=== PATIENT | female | born 1940 | race Hispanic/Latino ===

== ENCOUNTER → 2018-06-03 | Outpatient (CLI) | payer OTHER, MEDICARE | END | disposition home or self-care (01) | LOC: LAB 09:49 | PROVIDERS: ATTEND Dentist Oral and Maxillofacial Surgery | DX: M87.180 Osteonecrosis due to drugs, jaw (principal); Z79.83 Long term (current) use of bisphosphonates | CPT/HCPCS: 36415 ==

== ENCOUNTER → 2020-11-04 | Outpatient (CLI) | payer OTHER, MEDICARE ==
[2020-11-04 14:28] LABS: CREATININE 0.8 mg/dL (0.5-1.5)
== END | disposition home or self-care (01) ==
LOC: LAB 13:25
PROVIDERS: ATTEND Internal Medicine Gastroenterology
DX: R63.4 Abnormal weight loss (principal); R10.31 Right lower quadrant pain
CPT/HCPCS: 36415; 82565; 84520

== ENCOUNTER → 2020-11-05 | Outpatient (CLI) | payer OTHER, MEDICARE ==
[~2020-11-05] MED LIST: IOHEXOL-350 50ML VIAL IV ONE
== END | disposition home or self-care (01) ==
LOC: RAH 10:00
PROVIDERS: ATTEND Internal Medicine Gastroenterology
DX: K57.30 Diverticulosis of large intestine without perforation or abscess without bleeding (principal); R16.1 Splenomegaly, not elsewhere classified; R63.4 Abnormal weight loss
CPT/HCPCS: 74178; Q9967

== ENCOUNTER → 2020-11-25 | Outpatient (CLI) | payer OTHER, MEDICARE | END | disposition home or self-care (01) | LOC: RAH 09:53 | PROVIDERS: ATTEND Internal Medicine Gastroenterology | DX: R93.3 Abnormal findings on diagnostic imaging of other parts of digestive tract (principal); R16.1 Splenomegaly, not elsewhere classified | CPT/HCPCS: 76700; 93975 ==

== ENCOUNTER 2021-02-28 09:42 | Emergency (ER) | payer OTHER, MEDICARE ==
[~2021-02-28] VITALS: Ht 152.4 cm; Wt 58.5 kg
[2021-02-28 09:54] VITALS: BP 175/73
[2021-02-28] MEDS ORDERED: KETOROLAC 15MG/ML VIAL (15MG/ML) ONE (10:15)
[2021-02-28] MEDS ORDERED: KETOROLAC 15MG/ML VIAL (15MG/ML) IV ONE (10:30)
[2021-02-28 12:26] VITALS: BP 146/67
[2021-02-28] MEDS ORDERED: ACET1TAB25 PO (13:10)
[2021-02-28 13:36] VITALS: BP 151/65
== END 2021-02-28 13:40 | disposition home or self-care (01) ==
LOC: EDH 09:42
DX: S22.068A Other fracture of T7-T8 thoracic vertebra, initial encounter for closed fracture (principal); I10 Essential (primary) hypertension; E11.9 Type 2 diabetes mellitus without complications; E78.00 Pure hypercholesterolemia, unspecified; W01.0XXA Fall on same level from slipping, tripping and stumbling without subsequent striking against object, initial encounter; Y93.89 Activity, other specified; Y92.89 Other specified places as the place of occurrence of the external cause; Y99.8 Other external cause status
CPT/HCPCS: 71045; 71250; 72070; 74176; 93005; 96374; 99285; J1885

== ENCOUNTER 2022-03-11 11:02 | Emergency (ER) | payer OTHER, MEDICARE ==
[~2022-03-11] VITALS: Ht 152.4 cm; Wt 59.0 kg
[~2022-03-11 11:02] MED LIST changes: +ACET-2079 PO; -IOHEXOL-350 50ML VIAL IV ONE
[2022-03-11 11:05] VITALS: BP 158/70
[2022-03-11] MEDS ORDERED: DIPH25 PO (11:51)
[2022-03-11] MEDS ORDERED: FAMOTIDINE 20MG TAB PO ONE (12:00)
[2022-03-11] MEDS ORDERED: DIPHENHYDRAMINE HCL 25 MG CAPSULE PO ONE (12:00)
[2022-03-11 12:07] LABS: APPEARANCE,URINE CLEAR (CLEAR); BILIRUBIN,URINE NEGATIVE (NEGATIVE); COLOR,URINE YELLOW (YELLOW); GLUCOSE, URINE (UA) NEGATIVE (NEGATIVE); KETONES,URINE NEGATIVE (NEGATIVE); LEUKOCYTE ESTERASE ,URINE NEGATIVE (NEGATIVE); NITRATE,URINE NEGATIVE (NEGATIVE); OCCULT BLOOD,URINE NEGATIVE (NEGATIVE); PROTEIN,URINE NEGATIVE (NEGATIVE)
== END 2022-03-11 12:36 | disposition home or self-care (01) ==
LOC: EDH 11:02
DX: T78.49XA Other allergy, initial encounter (principal); E78.00 Pure hypercholesterolemia, unspecified; K21.9 Gastro-esophageal reflux disease without esophagitis; X58.XXXA Exposure to other specified factors, initial encounter
CPT/HCPCS: 99283; 81003; Q0163

== ENCOUNTER → 2022-06-10 | Outpatient (CLI) | payer OTHER, MEDICARE ==
[~2022-06-10] MED LIST changes: +DIPH25 PO
== END | disposition home or self-care (01) ==
LOC: RAH 08:52
PROVIDERS: ATTEND Internal Medicine Gastroenterology
DX: K74.60 Unspecified cirrhosis of liver (principal)
CPT/HCPCS: 76700

== ENCOUNTER → 2022-11-23 | Outpatient (CLI) | payer OTHER, MEDICARE ==
[~2022-11-23] MED LIST changes: +DIPH-1242 PO; -DIPH25 PO
== END | disposition home or self-care (01) ==
LOC: RAH 08:16
PROVIDERS: ATTEND Internal Medicine Gastroenterology
DX: K74.60 Unspecified cirrhosis of liver (principal); Q89.09 Congenital malformations of spleen; I70.0 Atherosclerosis of aorta
CPT/HCPCS: 76700

== ENCOUNTER 2023-02-08 17:49 | Emergency (ER) | payer OTHER, MEDICARE ==
[~2023-02-08] VITALS: Ht 152.4 cm; Wt 56.2 kg
[2023-02-08 17:50] VITALS: BP 135/66
[2023-02-08 19:26] LABS: BASOPHILS % (AUTO) 0.7 % (0.0-5.0); EOSINOPHILS % (AUTO) 4.7 % (0.0-8.0); HEMATOCRIT 26.5 % (36-48); LYMPHOCYTES % (AUTO) 24.3 % (21.0-51.0); MEAN CORPUSCULAR HEMOGLOBIN 29.6 pg (27.0-33.0); MEAN CORPUSCULAR HGB CONC 32.8 g/dL (32.0-36.0); MEAN CORPUSCULAR VOLUME 90.1 fL (79-99); MONOCYTES % (AUTO) 8.7 % (3.0-13.0); NEUTROPHILS % (AUTO) 61.3 % (40.0-77.0); PLATELET COUNT (AUTO) 92 K/uL (130-400); RED BLOOD CELL COUNT(AUTO) 2.94 MIL/uL (4.00-5.50); RED CELL DISTRIBUTION WIDTH 14.6 % (11.0-15.5)
[2023-02-08 19:34] LABS: POTASSIUM 3.6 mmol/L (3.5-5.1)
[2023-02-08 19:39] LABS: ALBUMIN 2.8 g/dL (3.5-5.0); TOTAL PROTEIN, SERUM 6.1 g/dL (6.0-8.3)
[2023-02-08 19:57] LABS: EOSINOPHILS % (MANUAL) 3 % (1-6); LYMPHOCYTES % (MANUAL) 22 % (22-44); MAN.DIFF COMMENT-IMPRESSION MANUAL DIFFERENTIAL; MONOCYTES % (MANUAL) 11 % (2-9); SEGMENTED NEUTROPHILS % 64 % (40-70)
[2023-02-08 19:59] LABS: PLATELET MORPHOLOGY COMMENT DECREASED
[2023-02-08] MEDS ORDERED: CYCL5TAB PO (22:26)
== END 2023-02-08 23:33 | disposition home or self-care (01) ==
LOC: EDH 17:49
DX: R25.2 Cramp and spasm (principal); K74.60 Unspecified cirrhosis of liver; D61.818 Other pancytopenia; E11.9 Type 2 diabetes mellitus without complications; E78.00 Pure hypercholesterolemia, unspecified; I10 Essential (primary) hypertension
CPT/HCPCS: 36415; 73562; 80053; 85025; 93970

== ENCOUNTER 2023-07-01 12:49 | Emergency (ER) | payer OTHER, MEDICARE ==
[~2023-07-01] VITALS: Ht 162.6 cm; Wt 68.0 kg
[~2023-07-01 12:49] MED LIST changes: +CYCL5TAB PO
[2023-07-01 14:41] LABS: BASOPHILS # (AUTO) 0.02 K/uL (0.00-0.20); BASOPHILS % (AUTO) 0.7 % (0.0-5.0); EOSINOPHILS # (AUTO) 0.18 K/uL (0.00-0.70); EOSINOPHILS % (AUTO) 6.3 % (0.0-8.0); HEMATOCRIT 28.3 % (36-48); LYMPHOCYTES # (AUTO) 0.6 K/uL (1.0-4.8); LYMPHOCYTES % (AUTO) 19.8 % (21.0-51.0); MEAN CORPUSCULAR HEMOGLOBIN 29.9 pg (27.0-33.0); MEAN CORPUSCULAR HGB CONC 32.2 g/dL (32.0-36.0); MEAN CORPUSCULAR VOLUME 93.1 fL (79-99); MONOCYTES # (AUTO) 0.2 K/uL (0.1-1.0); NEUTROPHILS # (AUTO) 1.9 K/uL (1.8-7.7); NEUTROPHILS % (AUTO) 65.2 % (40.0-77.0); PLATELET COUNT (AUTO) 120 K/uL (130-400); RED BLOOD CELL COUNT(AUTO) 3.04 MIL/uL (4.00-5.50); RED CELL DISTRIBUTION WIDTH 14.1 % (11.0-15.5); WHITE BLOOD COUNT (AUTO) 2.9 K/uL (4.8-10.8)
[2023-07-01 14:44] LABS: CREATININE 0.8 mg/dL (0.5-1.5); POTASSIUM 3.5 mmol/L (3.5-5.1)
[2023-07-01 14:56] LABS: ALBUMIN 3.1 g/dL (3.5-5.0); BILIRUBIN,TOTAL 0.7 mg/dL (0.2-1.0); TOTAL PROTEIN, SERUM 7.4 g/dL (6.0-8.3)
[2023-07-01 15:20] LABS: BAND NEUTROPHILS % (MANUAL) 4 % (0-2); EOSINOPHILS % (MANUAL) 4 % (1-6); LYMPHOCYTES % (MANUAL) 14 % (22-44); MAN.DIFF COMMENT-IMPRESSION MANUAL DIFFERENTIAL; MONOCYTES % (MANUAL) 6 % (2-9); REACTIVE LYMPHOCYTES 3 % (0-0); SEGMENTED NEUTROPHILS % 69 % (40-70); TOTAL CELLS COUNTED 100
[2023-07-01] MEDS ORDERED: MECLIZINE HCL 12.5 MG TABLET PO ONE (16:30)
[2023-07-01] MEDS ORDERED: MECL-262 PO (17:25)
[2023-07-01 17:27] VITALS: BP 145/68; PULSE 90; RESP 18; O2SAT 97
== END 2023-07-01 17:36 | disposition home or self-care (01) ==
LOC: EDH 12:49
DX: R42 Dizziness and giddiness (principal); E11.9 Type 2 diabetes mellitus without complications; E78.00 Pure hypercholesterolemia, unspecified; I10 Essential (primary) hypertension; K21.9 Gastro-esophageal reflux disease without esophagitis
CPT/HCPCS: 36415; 70450; 80053; 84484; 85025; 93005

== ENCOUNTER 2025-07-30 17:56 | Emergency (ER) | payer OTHER, MEDICAID ==
[~2025-07-30] VITALS: Ht 152.4 cm; Wt 56.7 kg
[2025-07-30 18:24] LABS: IMMATURE GRANULOCYTE ABSOLUTE 0.02 K/uL (0-1); NUCLEATED RED BLOOD CELLS 0.0 % (0.0-0.19); PLATELET COUNT (AUTO) 58 K/uL (130-400); RED BLOOD CELL COUNT(AUTO) 3.03 MIL/uL (4.00-5.50); RED CELL DISTRIBUTION WIDTH 13.4 % (11.0-15.5); WHITE BLOOD COUNT (AUTO) 2.4 K/uL (4.8-10.8)
[2025-07-30] MEDS ORDERED: ASPIRIN 325MG TAB PO ONE (18:30)
[2025-07-30 18:39] LABS: CREATININE 1.3 mg/dL (0.5-1.0); GLOMERULAR FILTR. RATE CALC 41.0 mL/min (>90); GLUCOSE,RANDOM 119.0 mg/dL (70-105); SODIUM SERUM 137.0 mmol/L (136-145); UREA NITROGEN, BLOOD 19.0 mg/dL (7-18)
--- NOTE | 2025-07-30 19:09 | NUR ---
REPORT ENDORSED TO RAVINDER SILVA
--- NOTE | 2025-07-30 19:38 | HMCIMG ---
EXAM: CR Chest, 1 View. CLINICAL HISTORY: CP COMPARISON: None provided. FINDINGS: LUNGS: There is no mass, infiltrate, or acute pulmonary abnormality. PLEURAL SPACES: No pleural effusion or pneumothorax. MEDIASTINUM: The cardiomediastinal silhouette is within normal limits. BONES: No aggressive appearing osseous lesion seen. IMPRESSION: No acute cardiopulmonary pathology is evident. /[place]
[2025-07-30 19:44] LABS: BAND NEUTROPHILS % (MANUAL) 8 % (0-2); EOSINOPHILS % (MANUAL) 3 % (1-6); LYMPHOCYTES % (MANUAL) 23 % (22-44); MAN.DIFF COMMENT-IMPRESSION MANUAL DIFFERENTIAL; MONOCYTES % (MANUAL) 5 % (2-9); REACTIVE LYMPHOCYTES 6 % (0-0); SEGMENTED NEUTROPHILS % 55 % (40-70)
--- NOTE | 2025-07-30 19:47 | ERN ---
ED Note History of Present Illness Stated Complaint: CHEST PAIN. SOB. ONSET TODAY. DURATION 10 MINUTES Chief Complaint: Chest Pain Time Seen by MD: 17:58 Time Seen by Midlevel: 17:58 Dictation: The patient is an 85-year-old female with history of dm, osteoporosis who presents to the emergency department via EMS for an episode of chest pain and shortness of breath that lasted about 10 min at around 5pm. Patient reports she felt like a cramp but then her symptoms resolved. Reports her pcp recently diagnosed her with bronchitis. Allergies: Coded Allergies: No Known Drug Allergies (Unverified Allergy, Unknown, 02/28/21) Home Meds Active Scripts Meclizine HCl (Antivert) 25 Mg Tab.chew, 25 MG PO TID for vertigo for 15 Days, #30 TAB.CHEW Prov:HALEY CRISTOBAL MD 07/01/23 Cyclobenzaprine HCl (Cyclobenzaprine HCl) 5 Mg Tablet, 5 MG PO TIDP PRN for PAIN, #20 TAB Prov:CECI PACKER MD 02/08/23 Diphenhydramine HCl (Benadryl) 25 Mg Cap, 25 MG PO Q6HPRN PRN for ITCHING, #15 CAP Prov:JUSTIN PEREZ COMPUTER EDUCATION TEACHER 03/11/22 Acetaminophen with Codeine (Acetaminophen-Cod #3 Tablet) 1 Each Tablet, 1 EACH PO TID for 7 Days, #20 TAB 0 Refills Prov:MAGY VASQUEZ MD 02/28/21 Past Medical History Past Medical History: Diabetes-Type II, GERD, High Cholesterol, Liver Disease Additional Past Medical Hx: OSTEOPOROSIS, GALL BLADDER POLYPS Surgical History: Other Surgical History Other: SPINE Social History: Negative RN Note Reviewed/Agreed w/PFSH: Yes Review of System Dictation Constitutional: Negative for fever,chills, and weight loss Eyes: Negative for injury, pain,redness, and discharge ENT: Negative for injury,pain or swelling Cardiovascular: Negative for palpitations, and edema positive for chest pain Respiratory: Negative for shortness of breath, cough, and wheezing, Abdomen/GI: Negative for abdominal pain, nausea, vomiting, diarrhea, and constipation Back: Negative for injury and pain : Negative for injury, bleeding and discharge MS/Extremity: Negative for injury and deformity Skin: Negative for rash, and discoloration Neuro: Negative for headache, weakness, numbness, tingling, and seizure Psych: Negative for suicide ideation, homicidal ideation, and hallucinations Initial Vital Sign VS Vital Signs Date Time Temp Pulse Resp B/P (MAP) Pulse Ox O2 Delivery O2 Flow Rate FiO2 07/30/25 17:58 98.4 84 19 143/74 100 Room Air 0 07/30/25 19:25 21 Physical Exam Dictation Vital Signs reviewed General Appearance: Alert, oriented x 3, no acute distress, well developed, nourished. Head and Face: non-traumatic. Eyes: PERRL, pink conjunctivas, eyelid no trauma, anterior chamber with arcus senilis. Ears: Pinnas intact and no signs of trauma or erythema ear canals clear and no discharge TM no erythema Nose: No discharge, no bleeding. Oropharynx: Mouth normal, tongue pink. pharynx clear,no erythema, tonsils no exudates, no abscesses noted, mucous membrane moist Neck: Supple, non-tender, no thyromegaly, no masses, no JVD, no bruits Breast:Deferred Chest:No tenderness, no crepitus, no paradoxical movement, no retractions Lungs:Clear, well-ventilated, symmetric, no rales, no wheezing, no rhonchi, no stridor, good breath sounds bilaterally Heart: Regular rate, regular rhythm, no murmur, no gallops Vascular: no peripheral edema, Abdomen: Soft, positive bowel sounds, nondistended, no guarding, nontender, no rebound, no masses no hepatomegaly, no splenomegaly, no Umaña's sign, no hernias. Rectal: Deferred Genital: Deferred Neurological: Normal speech, motor function intact, sensory function intact Musculoskeletal: Neck nontender, full range of motion, back nontender, full range of motion, Extremities: nontender, full range of motion Skin: Color pink, dry, no turgor, no rash, no lacerations, no abrasions, no contusions. Lymphatic: Deferred Results (Laboratory/Radiology) Laboratory/Radiology Laboratory Tests Test 07/30/25 18:13 07/30/25 19:16 White Blood Count 2.4 K/uL (4.8-10.8) L Red Blood Count 3.03 MIL/uL (4.00-5.50) L Hemoglobin 9.6 g/dL (12.0-16.0) L Hematocrit 29.0 % (36-48) L Mean Corpuscular Volume 95.7 fL (79-99) Mean Corpuscular Hemoglobin 31.7 pg (27.0-33.0) Mean Corpuscular Hemoglobin Concent 33.1 g/dL (32.0-36.0) Red Cell Distribution Width 13.4 % (11.0-15.5) Platelet Count 58 K/uL (130-400) L Mean Platelet Volume 10.8 fL (7.5-10.5) H Immature Granulocyte % (Auto) 0.8 % (0-1) Neutrophils (%) (Auto) 55.1 % (40.0-77.0) Lymphocytes (%) (Auto) 30.0 % (21.0-51.0) Monocytes (%) (Auto) 8.3 % (3.0-13.0) Eosinophils (%) (Auto) 5.4 % (0.0-8.0) Basophils (%) (Auto) 0.4 % (0.0-5.0) Neutrophils # (Auto) 1.3 K/uL (1.8-7.7) L Lymphocytes # (Auto) 0.7 K/uL (1.0-4.8) L Monocytes # (Auto) 0.2 K/uL (0.1-1.0) Eosinophils # (Auto) 0.13 K/uL (0.00-0.70) Basophils # (Auto) 0.01 K/uL (0.00-0.20) Absolute Immature Granulocyte (auto 0.02 K/uL (0-1) Segmented Neutrophils % 55 % (40-70) Band Neutrophils % 8 % (0-2) H Lymphocytes % (Manual) 23 % (22-44) Monocytes % (Manual) 5 % (2-9) Eosinophils % (Manual) 3 % (1-6) Nucleated Red Blood Cells 0.0 % (0.0-0.19) Differential Comment MANUAL DIFFERENTIAL Reactive Lymphocytes 6 % (0-0) H White Cell Morphology Comment Platelet Morphology Comment See comments Red Blood Cell Morphology See comments Sodium Level 137 mmol/L (136-145) Potassium Level 3.8 mmol/L (3.5-5.1) Chloride Level 102 mmol/L (101-111) Carbon Dioxide Level 24 mmol/L (21-32) Blood Urea Nitrogen 19 mg/dL (7-18) H Creatinine 1.3 mg/dL (0.5-1.0) H Glomerular Filtration Rate Calc 41 mL/min (>90) Random Glucose 119 mg/dL (70-105) H Total Calcium 8.8 mg/dL (8.5-10.1) Magnesium Level 1.90 mg/dL (1.80-2.40) Troponin I High Sensitivity 14 ng/L (4-50) 14 ng/L (4-50) B-Type Natriuretic Peptide 87 pg/mL (0-100) REASON: CP ORDERING PHYSICIAN: SCOUT ANGEL MD PROCEDURE: CXR1VW - CHEST 1VW EXAM: CR Chest, 1 View. CLINICAL HISTORY: CP COMPARISON: None provided. FINDINGS: LUNGS: There is no mass, infiltrate, or acute pulmonary abnormality. PLEURAL SPACES: No pleural effusion or pneumothorax. MEDIASTINUM: The cardiomediastinal silhouette is within normal limits. BONES: No aggressive appearing osseous lesion seen. IMPRESSION: No acute cardiopulmonary pathology is evident. /[place] Labs Reviewed?: Yes EKG: (+) rhythm (With the) EKG Comment: Date:07/30/2025 Time:1802 Ventricular rate:80 [place] interval:132 QRS duration:79 QT/QTc:386/445 EKG interpretation: Sinus rhythm Reviewed by ED Attending no STEMI ED Course ED Course Orders Procedure Category Date Status Time Cbc With Differential LAB 07/30/25 Complete 18:05 Chest 1vw RAD 07/30/25 Resulted 18:05 12 Lead Ekg Tracing- EKG 07/30/25 Logged Technical 18:05 Magnesium LAB 07/30/25 Complete 18:05 Troponin I High LAB 07/30/25 Complete Sensitivity 18:05 Urinalysis Profile LAB 07/30/25 Logged 18:05 Basic Metabolic Panel LAB 07/30/25 Complete 18:05 B-Type Natriuretic LAB 07/30/25 Complete Peptide 18:05 Aspirin 325mg Tab PHA 07/30/25 Complete (Aspirin 325mg Tab) 18:30 Manual Differential LAB 07/30/25 Complete 18:13 Troponin I High LAB 07/30/25 Complete Sensitivity 19:07 Current Medications Medications (Trade) Dose Ordered Sig/Nadya Route PRN Reason Start Time Stop Time Status Last Admin Dose Admin Aspirin (Aspirin 325mg Tab) 325 mg ONCE ONCE PO 07/30/25 18:30 07/30/25 18:34 DC Vital Signs Date Time Temp Pulse Resp B/P (MAP) Pulse Ox O2 Delivery O2 Flow Rate FiO2 07/30/25 19:25 98.4 76 18 152/62 98 Room Air* 0 21 07/30/25 17:58 98.4 84 19 143/74 100 Room Air 0 HEART Score Response (Comments) Value History: Low suspicion (0) 0 EKG: Normal 0 Age: > 65yrs (+2) 2 Risk Factors: 1-2 risk factors (+1) 1 Initial Troponin: Normal limit (0) 0 Total 3 Medical Decision Making MDM The patient is an 85-year-old female with history of dm, osteoporosis who presents to the emergency department via EMS for an episode of chest pain and shortness of breath that lasted about 10 min at around 5pm. Patient reports she felt like a cramp but then her symptoms resolved. Reports her pcp recently diagnosed her with bronchitis. CBC showed leukopenia which is unchanged from previous visits, normocytic anemia which is also unchanged from previous visits, chemistry showed mildly elevated creatine, negative BNP, no other electrolyte imbalance, negative troponin 14 x2. Chest xray showed no cardiopulmonary pathology. Patient reports no longer having any chest pain, patient chest pain reproductive to palpation, EKG was normal. Patient with a low risk heart score. I spoke to patient and patients family about possible admission the hospital for observation and further evaluation, at this time patient does not want to be admitted to the hospital. Spoke to patients daughter and they reports they would rather follow up as outpatient with PCP and cut and cover line worker. Patient otherwise in no acute distress, non labored respirations. No arrhythmias and stable vital signs. Patient no longer having any chest pain. No hypoxemia or tachycardia. Wells score low risk for PE. Patient instructed to return if anything worsens or changes. Differential diagnosis: ACS, PNA, costochondritis, tachyarrhythmia Need for hospitalization: Patient does not meet criteria for hospitalization. There are no social concerns with this patient. DX & DISP Disposition: Discharge Departure Impression: Primary Impression: Chest pain, atypical Condition: Stable Additional Instructions: Follow up with your Primary doctor in 1-2. Your x-ray did not show any pneumonia. The rest of your labs were unremarkable. Follow up with your cut and cover line worker. Please return if you develop any chest pain or your symptoms worsen or if you have any concerns please return to ER. FOLLOW-UP WITH PRIMARY CARE PROVIDER IN 1 TO 2 DAYS. TAKE MEDICATIONS DIRECTED HERE IN THE EMERGENCY ROOM. OKAY TO CONTINUE HOME MEDICATIONS UNLESS OTHERWISE DISCUSSED DURING YOUR VISIT IN THE EMERGENCY ROOM TODAY. RETURN TO YOUR NEAREST EMERGENCY ROOM IF SYMPTOMS WORSEN OR IF THERE IS NO IMPROVEMENT. CALL 911 IF YOU NEED IMMEDIATE ASSISTANCE. TAKE TYLENOL [id number] NEEDED AND IF NO CONTRAINDICATIONS ARE PRESENT. INCREASE ORAL HYDRATION. A WOUND CULTURE OR URINE CULTURE WAS ORDERED HERE IN THE EMERGENCY ROOM DEPARTMENT PLEASE FOLLOW-UP WITH PRIMARY CARE PROVIDER AND ADVISE THEM TO GET REPEAT PORTS FROM OUR FACILITY. IF YOU HAD ANY GOKUL WRAP/SPLINTS THAT WERE APPLIED HERE, PLEASE DO NOT REMOVE THEM UNTIL YOU SEE YOUR PRIMARY CARE OR SPECIALTY. Referrals: DANIEL MONROE MD (PCP) Time of Disposition: 20:39 I have reviewed the case, and I agree with, Diagnosis and Plan MARY CEDILLO [facility] Jul 30, 2025 19:47
[2025-07-30 20:53] VITALS: BP 142/58; PULSE 72; RESP 20; TEMP 98.5; O2SAT 97
--- NOTE | 2025-07-31 07:27 | EKG ---
[facility] Test Date: 2025-07-30 Test Time: 18:02:41 Pat Name: WALKER HARRINGTON Department: [facility] Room: Gender: F Duplicator Punch Set Up Operator: [id number] : [id number] Requested By: SCOUT ANGEL Order Number: [id number] Reading MD: Raulito Bradley Measurements Intervals [place] Rate: 80 P: 26 NV: 132 QRS: 28 QRSD: 79 T: 5 QT: 386 QTc: 445 Interpretive Statements Sinus rhythm Compared to ECG 07/01/2023 12:56:36 No significant changes Electronically Signed On 07-31-2025 20:13:02 PT SKILLED by Raulito Bradley Please click the below link to view image of tracing.
== END 2025-07-30 20:52 | disposition home or self-care (01) ==
LOC: EDH 17:56
DX: R07.89 Other chest pain (principal); R06.02 Shortness of breath; E11.9 Type 2 diabetes mellitus without complications; E78.00 Pure hypercholesterolemia, unspecified; M81.0 Age-related osteoporosis without current pathological fracture; K21.9 Gastro-esophageal reflux disease without esophagitis; Z79.891 Long term (current) use of opiate analgesic
CPT/HCPCS: 36415; 71045; 80048; 83735; 83880; 84484; 85025; 93005; 99285